=== PATIENT | female | born 1940 | race Caucasian/White ===

== ENCOUNTER 2025-07-10 10:56 | Outpatient (REF) | payer MEDICARE, OTHER, SELFPAY ==
[2025-07-10 14:53] LABS: Resp Syncy Virus RNA Qual PCR NEGATIVE (Negative); SARS COV2 PCR INHOUSE NEGATIVE (Negative)
== END 2025-07-10 10:57 | disposition home or self-care (01) ==
LOC: HO.LAB 10:56
PROVIDERS: Physician Assistant; PCP Internal Medicine
DX: Z03.818 Encounter for observation for suspected exposure to other biological agents ruled out (principal)
CPT/HCPCS: 87637

== ENCOUNTER 2025-07-10 10:56 | Outpatient (AMB) | payer MEDICARE, OTHER, SELFPAY ==
--- NOTE | 2025-07-10 11:02 | MHC.OFFWIV ---
Intake Vital Signs 07/10/25 11:03 Height 5 ft 3 in Weight 143 lb BMI 25.3 BP 122/70 Blood Pressure Location Lt brachial Position Sitting Pulse 74 Pulse Source Pulse Oximeter Temp 98.6 F Temp Source Oral Pulse Oximetry (%) 97 Oxygen Delivery Method Room Air Intake Visit Reasons: [employer]-diarrhea, cough, sore throat, running nose Intake Note: Patient presents c/o cough, chills, sore throat, runny nose, weakness, diarrhea, chest congestion x7 days Patient Tobacco Use Status: Never used Tobacco Allergies No Known Allergies Allergy (Verified 07/10/25 11:06) HPI HPI Comments History of Present Illness Details History - The patient is an 84-year-old female presenting with a one-week history of symptoms that began 1 week ago. - She reports chest congestion and watery, non-bloody, non-melanotic diarrhea. - Her symptoms also include a severe cough, which worsens at night, and occasional unmeasured fevers at night. - The patient has been able to eat, drink, and maintain hydration throughout her illness. - She reports having taken Zicam but it did not help her symptoms. - Her past medical history is negative for asthma and COPD, and she denies any history of smoking or vaping. - The patient states she has received all her recommended vaccinations. Review of Systems - Constitutional: Reports occasional, unmeasured fevers at night. - Respiratory: Reports chest congestion and a severe cough, particularly at night. - Gastrointestinal: Reports watery diarrhea. Denies any blood or black color in stool. - Head/Neck: Denies swelling in the lymph nodes of her neck. All systems reviewed and are unremarkable except as noted in HPI Physical Exam General: Cooperative, healthy appearing, comfortable and no acute distress Orientation/consciousness: Patient oriented x3 Limitations: No limitations Head: Normal to inspection Ears: Hearing grossly normal bilaterally, external ears normal, EAC's normal bilaterally and TM's normal bilaterally Nose: Normal external nose present, Normal nares present and No nasal discharge present Face and sinus: Normal facial exam and sinuses nontender Mouth: Normal oral and palatal mucosa present and moist mucous membranes Throat: tonsils normal, no exudates, uvula midline, posterior oropharynx erythema Eyes: Appearance normal, both eyes and all related structures Neck: Normal visual inspection, full ROM, no swelling in lymph nodes Respiratory: Clear to auscultation bilaterally. Normal respiratory effort, able to speak in complete sentences, actively coughing, no respiratory distress, not tachypneic, no tripod positioning and no use of accessory muscles Cardiovascular: Regular rate and rhythm. Normal S1 and S2 Skin: No rashes or lesions noted Neuro: Patient oriented x3 Extremities: Normal to inspection and Yes no clubbing, cyanosis or edema PFSH Social History Patient Tobacco Use Status: Never used Tobacco Physical Exam Vital Signs: Last Vital Signs Temp 98.6 F 07/10/25 11:03 Pulse 74 07/10/25 11:03 BP 122/70 07/10/25 11:03 Pulse Ox 97 07/10/25 11:03 Oxygen Delivery Method Room Air 07/10/25 11:03 BMI result Body Mass Index 25.3 Assessment & Plan Assessment & Plan (1) Acute viral syndrome: Code(s): B34.9 - Viral infection, unspecified Plan: Plan Patient was informed and verbally consented to the use of an ambient scribe for clinic note documentation during this visit. - VSS, pt well appearing and PE unremarkable. - The patient's presentation is consistent with a viral illness, likely COVID-19, influenza, or rhinovirus. - A nasal swab was collected for COVID-19, influenza, and RSV testing. - Due to the symptom duration exceeding 48 hours, antiviral medications are not indicated. - The patient was advised to maintain hydration and that symptoms may persist for another 5-7 days or up to a couple of weeks. - The patient was instructed to monitor for signs of pneumonia, such as shortness of breath or back pain, and to return for a chest X-ray or go to the ED if these symptoms develop. - She should follow up with her primary care provider if her condition does not improve within the next week. - To manage the severe nocturnal cough, a prescription for a cough suppressant was sent to [facility] on [facility]. - The patient was provided with a 10-day supply to be taken at bedtime. - She was counseled on the importance of keeping the medication secured from children. - [id number] options like Robitussin, Mucinex, and antihistamines were also discussed for symptom management. Orders: Orders SARS-CoV2/FLU/RSV Today R09.89 - Other specified symptoms and signs involving the circulatory and respiratory systems Medications: New benzonatate DO NOT ALLOW CHILDREN TO HAVE ACCESS TO THIS MEDICATION IT IS DANGEROUS FOR CHILDREN. 200 mg PO BEDTIME PRN 10 caps 0RF cough Coding Level of Care Code New Pt Level 3 (96435) Diagnoses Acute viral syndrome B34.9
[2025-07-10 11:03] VITALS: BP 122/70; PULSE 74; TEMP 37; O2SAT 97; BMI 25.3
--- OUTSIDE RECORDS SUMMARY | 2025-07-10 12:17 | XMS_ITS ---
Author Name [facility] Organization Unknown History of Medication Use Medication Directions Dispensed Refills Start Date End Date Stat traMADoL (ULTRAM) 50 mg tablet Take 1 tablet (50 mg total) by mouth every 6 (six) hours if needed for moderate pain or severe pain. Max Daily Amount: 200 mg 06/13/2024 active oxyCODONE (ROXICODONE) 5 mg immediate release tablet Take 1 tablet (5 mg total) by mouth every 6 (six) hours if needed for severe pain. Max Daily Amount: 20 mg 06/07/2024 active aspirin 81 mg EC tablet Take 1 tablet (81 mg total) by mouth 2 (two) times a day for 84 doses. 05/30/2024 07/12/2024 active ondansetron (ZOFRAN) 4 mg tablet Take 1 tablet (4 mg total) by mouth every 8 (eight) hours if needed for nausea or vomiting for up to 20 doses. 05/30/2024 active amLODIPine (NORVASC) 10 mg tablet Take 1 tablet (10 mg total) by mouth 1 (one) time each day. 04/06/2024 active atorvastatin (LIPITOR) 10 mg tablet Take 1 tablet (10 mg total) by mouth at bedtime. Take 1 Tablet by mouth every evening. 04/06/2024 active levothyroxine (SYNTHROID, LEVOTHROID) 75 mcg tablet Take 1 tablet (75 mcg total) by mouth 1 (one) time each day before breakfast. 04/06/2024 active lisinopril (PRINIVIL,ZESTRIL) 40 mg tablet Take 1 tablet (40 mg total) by mouth 1 (one) time each day. Take 1 Tablet by mouth every evening. 04/06/2024 active lidocaine-prilocaine (EMLA) 2.5-2.5 % cream APPLY TO THE TREATMENT AREAS 2 HOURS PRIOR TO APPOINTMENT. COSMETIC USE ONLY 12/21/2023 active tretinoin (RETIN-A) 0.05 % cream APPLY PEA SIZE AMOUNT TO FACE EVERY NIGHT 09/15/2023 active ondansetron ODT (ZOFRAN-ODT) 8 mg disintegrating tablet Take 1 tablet (8 mg total) by mouth. 09/09/2023 active pantoprazole (PROTONIX) 40 mg EC tablet Take 1 tablet (40 mg total) by mouth 1 (one) time each day before breakfast. 09/09/2023 active estradioL (ESTRACE) 0.01 % (0.1 mg/gram) vaginal cream Apply 1/2g with finger nightly for 2 weeks, then Wednesday, Wednesday, Wednesday. 04/08/2023 active calcium phosphate trib/vit D3 (calcium phosphate-vitamin D3) 250 mg-5 mcg (200 unit) tablet,chewable Chew 2 tablets 1 (one) time each day. active digoxin (LANOXIN) 125 mcg (0.125 mg) tablet Take 1 tablet (125 mcg total) by mouth 1 (one) time each day. active multivitamin (MULTIPLE VITAMINS ORAL) Take 1 tablet by mouth 1 (one) time each day. active Allergies Allergen Reaction Severity Comment Documented Date Source Statu s NITROFURANTOIN 09/08/2023 [facility] act vargas SIMVASTATIN myalgias 04/24/2020 [facility] activ e LOVASTATIN Muscle pain 11/09/2008 [facility] act vargas Problems Problem Status Onset Date Problem Type Date of Resolution Source Hypercholesterolemia active 3 ProblemAct [facility] Tubular adenoma active 2008-10-18 4 ProblemAct [facility] Paroxysmal SVT (supraventricular tachycardia) active 1 ProblemAct [facility] Osteopenia active 2018-08-19 4 ProblemAct [facility] Anxiety active 2011-12-19 2 ProblemAct [facility] Primary osteoarthritis of left hip active 2023-06-19 8 ProblemAct [facility] Post-traumatic osteoarthritis of right knee active 7 ProblemAct [facility] Hypertension active 3 ProblemAct [facility] Encounter for screening mammogram for breast cancer active EncounterDiagnosisAct [facility] N Chronic kidney disease, stage III (moderate) active 2013-12-18 1 ProblemAct [facility] PVD (peripheral vascular disease) active 2022-06-19 9 ProblemAct [facility] Hypothyroid active 8 ProblemAct [facility] N Lipoma of neck active 3 ProblemAct [facility] Lateral meniscus tear active 3 ProblemAct [facility] Esophageal reflux active 3 ProblemAct [facility] Status post total right knee replacement active 2024-05-19 1 ProblemAct [facility] N Immunizations Vaccine Date Source Lot Number Status COVID-19 (Pfizer/Comirnaty) 12yo and older 04/04/2023 [facility] [id number] completed Influenza trivalent, 0.5mL ( Fluzone High-dose) 65yo and older 04/04/2023 [facility] comple luiz Td Tetanus diptheria (Tdvax) 7yo and older 12/31/2022 [facility] [id number] completed TD, Adsorbed, Preservative Free 12/31/2022 [facility] A140 A1 completed Influenza trivalent, 0.5mL ( Fluzone High-dose) 65yo and older 04/18/2022 [facility] comple luiz Pfizer (ages 12 & older) Biv alent, COVID-19 04/06/2022 [facility] [id number] completed Pfizer SARS-CoV-2 COVID-19, mRNA, LNP-S, preservative free 04/20/2021 [facility] [id number] completed Influenza trivalent, 0.5mL ( Fluzone High-dose) 65yo and older 04/11/2021 [facility] comple luiz Pfizer SARS-CoV-2 COVID-19, mRNA, LNP-S, preservative free 10/01/2020 [facility] completed Influenza trivalent, 0.5mL ( Fluzone High-dose) 65yo and older 04/12/2020 [facility] comple luiz Influenza trivalent, 0.5mL ( Fluzone High-dose) 65yo and older 04/07/2019 [facility] [id number] comple luiz Zoster recombinant (Shingrix ) 19yo and older 11/04/2018 [facility] [id number] completed Influenza trivalent, 0.5mL ( Fluzone High-dose) 65yo and older 03/21/2018 [facility] comple luiz Zoster recombinant (Shingrix ) 19yo and older 03/18/2018 [facility] [id number] completed Influenza, Unspecified 04/18/2016 [facility] co mpleted Influenza, Unspecified 04/12/2015 [facility] co mpleted Pneumococcal conjugate 13 va lent (Prevnar 13, PCV13) 2mo and older 01/03/2015 [facility] [id number] complet ed Influenza, Unspecified 03/23/2014 [facility] co mpleted Tdap Tetanus diptheria acell ular pertussis (Boostrix; Adacel) 7yo and older 08/24/2012 [facility] [id number] completed Influenza trivalent, with pr eservative (Fluzone; Afluria) 6mo and older 04/08/2012 [facility] [id number] completed Influenza trivalent, with pr eservative (Fluzone; Afluria) 6mo and older 05/02/2011 [facility] completed Influenza trivalent, with pr eservative (Fluzone; Afluria) 6mo and older 05/19/2010 [facility] completed Zoster Live 07/26/2009 [facility] [id number] completed H1N1 Inj Preservative Free 07/05/2009 [facility] [id number] completed Influenza trivalent, with pr eservative (Fluzone; Afluria) 6mo and older 05/19/2009 [facility] completed Influenza trivalent, with pr eservative (Fluzone; Afluria) 6mo and older 04/18/2007 [facility] [id number] completed Pneumococcal polysaccharide 23 valent (Pneumovax 23) 2yo and older 09/22/2006 [facility] [id number] com pleted Influenza trivalent, with pr eservative (Fluzone; Afluria) 6mo and older 05/26/2005 [facility] completed Td, Unspecified 12/25/2002 [facility] completed Care Team Organization Name Specialty Phone Email Start Date End Da te [facility] ACO 03/07/2025 [facility] Leonila Clemente [facility] 12/25/2022 [facility] Aisha Gomez [facility] 05/26/202202/16
--- OUTSIDE RECORDS SUMMARY | 2025-07-10 12:17 | XMS_ITS | Clinical Summary ---
Author Organization [facility] Address [address] [place] [address] Phone Care Team Providers Care Flour Worker Name Role Phone Leonila Clemente MD Primary Care Provider [phone] Allergies Active Allergy Reactions Criticality Noted Date Comments Lovastatin Unknown Low 11/09/2008 Muscle pain Nitrofurantoin Unknown Low 09/08/2023 Simvastatin Unknown Low 04/24/2020 myalgias Medications lisinopril (PRINIVIL,ZESTR IL) 40 mg tablet Take 1 tablet (40 mg total) by mouth 1 (one) time each day. Take 1 Tablet by mouth every evening. 04/06/2024 Active tretinoin (RETIN-A) 0.05 % cream APPLY PEA SIZE AMOUNT TO FACE EVERY NIGHT 09/15/2023 Active calcium phosphate trib/vit D3 (calcium phosphate-vitam in D3) 250 mg-5 mcg (200 unit) tablet,chewable Chew 2 tablets 1 (one) time each day. Active multivitamin (MULTIPLE VITAMINS ORAL) Take 1 tablet by mouth 1 (one) time each day. Active amLODIPine (NORVASC) 5 mg tablet Take 1 tablet (5 mg total) by mouth 1 (one) time each day. 90 tablet 3 09/21/2024 Active metoprolol tartrate (LOPRESSOR) 25 mg tablet Take 0.5 tablets (12.5 mg total) by mouth 2 (two) times a day. 90 each 1 11/21/2024 Active levothyroxine (SYNTHROID, LEVOTHROID) 75 mcg tablet TAKE 1 TABLET BY MOUTH 1 TIME EACH DAY BEFORE BREAKFAST. 90 tablet 2 12/26/2024 Active atorvastatin (LIPITOR) 10 mg tablet TAKE 1 TABLET BY MOUTH EVERY DAY IN THE EVENING 90 tablet 1 05/21/2025 Active aspirin 81 mg EC tablet Take 1 tablet (81 mg total) by mouth 1 (one) time each day. 05/30/2025 6 Active Active Problems Problem Noted Date Diagnosed Date Supraventricular arrhythmia 05/30/2025 Atrial ectopy 05/30/2025 Overview (05/30/2025): She had a 7-day monitor which revealed Paroxysmal atrial tachycardia with the longest run being 37 seconds. There were frequent supraventricular ectopy with an overall burden of 5.6%. There was no clear rhythm correlate to the 6 patient triggered events, most of these were normal sinus rhythm with a few that correlated to isolated APCs or sinus rhythm with a supraventricular triplet. Assessment & Plan (05/30/2025 9:27 AM EST): Patient no longer having symptoms on the metoprolol 12.5 mg p.o. twice daily. Please continue with this regimen. Status post total replacement of left hip 2024 Status post total right knee replacement 024 Paroxysmal SVT (supraventricular tachycardia) Overview (04/19/2024): - Had a second presyncopal episode in 2009 at a restaurant that was postural in nature-she stood up, felt weak and dizzy-she laid to the floor and called EMS-eventually she was thought to have volume depletion after going to the ER - Had a Holter monitor after a second presyncopal episode in 2009 showing multiple short runs of SVT with the longest being only 11 beats, the patient was completely asymptomatic, of note, doing the math-the overall burden of SVE was only 0.6%- again she did not have any significant pauses though did have a fair portion of time in not clinically significant sinus bradycardia - She was started on digoxin for this in addition to pre-existing atenolol - At some point, atenolol was dropped and she remains on monotherapy with digoxin Last Assessment & Plan: Unclear that the SVT based on the documentation was ever clinically relevant-the patient does not describe any history of palpitations-her previous syncopal episodes sound vasovagal in nature, would give serious consideration to discontinuation of digoxin as it really is not doing much for the patient- if concern for SVT exists, would probably repeat a Holter off of digoxin after a few months. I did consider doing this today but she is going to be going for surgery very soon and I do not want to make any major medication changes prior to this. Assessment & Plan (11/21/2024 9:14 AM EDT): Not seen on recent Holter monitor. Patient doing well on the low-dose metoprolol. Patient is having no recurrence of palpitations. Will continue to monitor. Assessment & Plan (08/21/2024 12:00 PM EST): I am going to have the patient update an echocardiogram in addition I am going to update the monitor and instruct the patient that she needs to wear it overnight. I am curious if she is having episodes of SVT while she is sleeping and does not know about it. Patient is not endorsing any increase in palpitations, will not initiate Toprol at this time. Instructed to call 911 or go to the emergency room should the patient begin to experience chest pain or pressure lasting greater than 10 minutes does not resolve with rest. Orders: Basic metabolic panel; Future Transthoracic echocardiogram (TTE) complete with PRN contrast, bubble, strain, and 3D order panel; Future Cardiac event monitor; Future PVD (peripheral vascular disease) 07/16/2022 Overview (04/19/2024): 07/09 50-99% right SFA and popliteal stenosis Osteopenia 09/01/2018 Overview (04/19/2024): 09/06 T score spine 0.00 hip -1.4 FRAX score 12% 10 year fracture risk Chronic kidney disease, stage III (moderate) Assessment & Plan (10/11/2024 5:23 PM EDT): Anxiety 01/08/2012 Tubular adenoma 11/09/2008 Overview (04/19/2024): 3 Hypothyroid 02/24/2008 Assessment & Plan (10/11/2024 5:23 PM EDT): Lateral meniscus tear 07/21/2005 Overview (04/19/2024): KNEE LATERAL AND MEDIAL MENISCUS TEAR: REPAIRED Esophageal reflux 07/21/2005 Assessment & Plan (10/11/2024 5:23 PM EDT): Hypercholesterolemia 07/21/2005 Overview (04/19/2024): Last Assessment & Plan: Patient is tolerating low-dose Lipitor, continue. Assessment & Plan (05/30/2025 9:28 AM EST): At target with low-dose atorvastatin. Please adhere to a healthy cardiac diet and remain active. Continue current medication regimen. Assessment & Plan (11/21/2024 9:14 AM EDT): Lipid panel from 03/2024 revealed the cholesterol level LDL of 82. Triglycerides at 141. These are at target. Continue current medication regiment which is atorvastatin 10 mg p.o. daily. Assessment & Plan (10/11/2024 5:23 PM EDT): Assessment & Plan (08/21/2024 12:00 PM EST): Lipid panel from 03/2024 revealed LDL of 82. Patient can continue on current medication regimen. Should try to adhere to a healthy cardiac diet. Orders: Basic metabolic panel; Future Transthoracic echocardiogram (TTE) complete with PRN contrast, bubble, strain, and 3D order panel; Future Hypertension 07/21/2005 Overview (04/19/2024): Last Assessment & Plan: Suboptimally controlled in the office but better controlled at home. Likely whitecoat phenomenon. Continue current lisinopril 40 mg daily, amlodipine 10 mg daily. Assessment & Plan (05/30/2025 9:28 AM EST): Suboptimally controlled, patient has noted whitecoat syndrome. She did occasionally take blood pressures at home, however she reports that she has had good readings at in the past and stopped doing this regularly. Spoke to her that it would be a good idea periodically to check her blood pressure, especially if she is ever having symptoms. Not going to make any medication changes at this time. Educated on the importance of diet lifestyle to help further assist in reducing blood pressure. The patient was encouraged to follow low-salt low-fat diet, make purposeful strides towards weight loss, and engage in routine aerobic exercise as tolerated. Assessment & Plan (11/21/2024 9:14 AM EDT): Slightly elevated at the appointment today, however better than in the past that she has a whitecoat syndrome. Continue on current medication regimen. Educated on the importance of diet lifestyle to help further assist in reducing blood pressure. The patient was encouraged to follow low-salt low-fat diet, make purposeful strides towards weight loss, and engage in routine aerobic exercise as tolerated. Orders: Basic metabolic panel; Future Assessment & Plan (10/11/2024 5:23 PM EDT): Assessment & Plan (08/21/2024 12:00 PM EST): Patient is slightly hypertensive at the appointment today. Does take blood pressures at home and says they typically are normal. Educated on the importance of diet lifestyle to help further assist in reducing blood pressure. The patient was encouraged to follow low-salt low-fat diet, make purposeful strides towards weight loss, and engage in routine aerobic exercise as tolerated. Continue current regimen for now. Orders: Basic metabolic panel; Future Transthoracic echocardiogram (TTE) complete with PRN contrast, bubble, strain, and 3D order panel; Future Lipoma of neck 07/21/2005 Overview (04/19/2024): resected Resolved Problems Problem Noted Date Diagnosed Date Resolved Date Primary osteoarthritis of left knee 09/13/2024 09/13/2024 Post-traumatic osteoarthritis of right knee 02/23/2024 09/13/2024 Primary osteoarthritis of left hip 07/15/2023 09/13/2024 Overview (04/19/2024): 09/11 left THR Encounters Date Type Department Care Team Description 05/30/2025 9:10 AM EST Office Visit [facility] [address] [facility] [address] [place] [phone] Tarun Muñoz NP Hypercholesterolemia (Primary Dx); Hypertension, unspecified type; Atrial ectopy 05/01/2025 Telephone Adult Medicine [address] [phone] Leonila Clemente MD 04/18/2025 Results Follow-Up [address] [phone] Aisha Gomez PA 04/16/2025 10:00 AM EDT Office Visit Adult [address] [phone] Aisha Gomez PA Hypercholesterolemia (Primary Dx); Osteopenia, unspecified location; Acquired hypothyroidism; Primary hypertension; Stage 3a chronic kidney disease (CMS/HCC V24, CMS/HCC V28); Paroxysmal SVT (supraventricular tachycardia) (CMS/HCC V24) from Last 3 Months Immunizations Immunization Administration Dates Next Due COVID-19 (Pfizer/Comirnaty) 12yo and older 04/04/2023 H1N1 Inj Preservative Free 07/05/2009 Influenza Quadravalent, 0.5m l (Fluad) 65yo and older 04/11/2021,04/12/2020 Influenza Quadravalent, 0.5m l (Fluzone High-dose) 65yo and older 04/04/2023,04/20/2022 Influenza trivalent, 0.5mL ( Fluad) 65yo and older 04/17/2024,04/05/2017 Influenza trivalent, 0.5mL ( Fluzone High-dose) 65yo and older 04/10/2025,04/04/2023,04/18/2022,04/11,04/12/2020,04/07/2019,03/21/2018 ,04/02/2016 Influenza trivalent, with pr eservative (Fluzone; Afluria) 6mo and older 04/08/2012,05/02/2011,05/19/2010,05/19,04/18/2007,05/26/2005 Influenza, Unspecified 04/18/2016,04/12/2015,11/2013 Pfizer (ages 12 & older) Biv alent, COVID-19 04/06/2022 Pfizer SARS-CoV-2 COVID-19, mRNA, LNP-S, preservative free 04/04/2023,04/20/2021,10/01/2020,09/17 Pneumococcal conjugate 13 va lent (Prevnar 13, PCV13) 2mo and older 01/03/2015 Pneumococcal polysaccharide 23 valent (Pneumovax 23) 2yo and older 09/22/2006 RSV, bivalent, protein subun it RSVpreF, 0.5mL, Preservative Free (Arexvy) 50yo and older 04/17/2024 Respiratory Syncytial Virus Monoclonal Antibody (palivizumab), Intramuscular 04/17/2024 TD, Adsorbed, Preservative Free 12/31/2022 Td Tetanus diptheria (Tdvax) 7yo and older 12/31/2022 Td, Unspecified 12/25/2002 Tdap Tetanus diptheria acell ular pertussis (Boostrix; Adacel) 7yo and older 08/24/2012 Zoster Live 07/26/2009 Zoster recombinant (Shingrix ) 19yo and older 11/04/2018,03/18/2018 Surgical History Surgery Date Site/Laterality Comments HYSTERECTOMY HIP ARTHROPLASTY MENISCECTOMY OTHER SURGICAL HISTORY Medical History Medical History Date Comments Hypertension PVD (peripheral vascular disease) ([facility] V24) Sinoatrial node dysfunction ([facility] V24, CMS/HC C V28) Hyperlipidemia A-fib ([facility] V24, [facility] V28) Arrhythmia GERD (gastroesophageal reflux disease) Chronic kidney disease OA (osteoarthritis) Bunion of right foot Lumbar spondylosis DJD (degenerative joint disease) Joint pain OP (osteoporosis) Hypothyroidism Anxiety Family History Medical History Relation Name Comments Breast cancer Sister Relation Name Status Comments Sister Social History Tobacco Use Types Packs/Day Years Used Date Smoking Tobacco: Never Smokeless Tobacco: Never Tobacco Cessation:Counseling Given: Not Answered Alcohol Use Standard Drinks/Week Comments Never 0 (1 standard drink = 0.6 oz pur e alcohol) Interpersonal Safety Answer Date Record ed Physical Abuse Unrecognized value 05/30/2024 Verbal Abuse Unrecognized value 05/30/2024 Comments Unknown Sex and Gender Information Value Date Recorded Sex Assigned at Female 05/29/2024 10:40 AM EST Legal Sex Female 2:45 AM EST Gender Identity Female 05/29/2024 10:40 AM EST Sexual Orientation Straight 05/29/2024 10 :40 AM EST Obstetrics History Para Term AB IAB SAB Ectopic Multiple Livin g Live Births 5 5 5 5 Date Outcome GA Total Labor Labor/2nd/3rd Weight Sex Type Anes PTL Emelia A1 A5 Name Clin Term Term Term Term Term Last Filed Vital Signs Vital Sign Reading Time Taken Comments Blood Pressure 160/64 05/30/2025 9:01 AM EST Pulse 59 05/30/2025 9:01 AM EST Temperature 35.6 C (96.1 F) 04/16/2025 10:06 AM EDT Respiratory Rate 18 04/16/2025 10:06 AM EDT Oxygen Saturation 99% 05/30/2025 9:01 AM EST Inhaled Oxygen Concentration - - Weight 64.4 kg (142 lb) 05/30/2025 9:01 AM EST Height 160 cm (5' 3 ) 05/30/2025 9:01 AM EST Body Mass Index 25.15 05/30/2025 9:01 AM EST Plan of Treatment Upcoming Encounters Date Type Department Care Team (Late st Contact Info) Description 07/18/2025 9:00 AM EST Office Visit Orthopedic Surgery - [place] [address] [address] [facility] [address] [place] [phone] Bobo Romo MD [address] [address] 08/07/2025 2:45 PM EST Appointment Bone Density [address] [phone] Health Maintenance Due Date Last Done Comments Osteoporosis Screening (Bone Density Screening) 06/27/2022 09/01/2018 Social Influencers of Health Screening 06/27/2022 COVID-19 Vaccine (10 - Pfizer risk season) 2025 04/10/2025, 04/17/2024, 04/04/2023, Additional history exists Falls Risk Assessment 10/11/2025 10/11/2024, 024 Medicare Annual Wellness Visit 10/11/2025 10/11/2024 Hypertension/CHF/CAD Annual BMP Blood Test 04/16/2026 04/16/2025, 11/22/2024, 09/20/2024, Additional history exists Cholesterol Screening (Lipid Panel) 04/16/2030 04/16/2025, 04/07/2024, 04/07/2024 DTaP,Tdap,and Td Vaccines (5 - Td or Tdap) 12/31/2032 12/31/2022, 12/31/2022, 08/24/2012, Additional history exists Pneumococcal Vaccine: 50+ Years Completed 01/03/2015, 09/22/2006 Zoster Vaccines Completed 11/04/2018, 02/18, 07/26/2009 RSV Immunization Adult Patients Completed 04/17/2024 Depression Screening Completed 10/11/2024, 06/22/20 23 Influenza Vaccine Completed 04/10/2025, , 04/04/2023, Additional history exists HIB Vaccines Aged Out No longer eligi ble based on patient's age to complete this topic HPV Vaccines Aged Out No longer eligi ble based on patient's age to complete this topic Hepatitis A Vaccines Aged Out No long er eligible based on patient's age to complete this topic Hepatitis B Vaccines Aged Out No long er eligible based on patient's age to complete this topic IPV Vaccines Aged Out No longer eligi ble based on patient's age to complete this topic MMR Vaccines Aged Out No longer eligi ble based on patient's age to complete this topic Meningococcal ACWY Vaccine Aged Out N o longer eligible based on patient's age to complete this topic Meningococcal B Vaccine Aged Out No l onger eligible based on patient's age to complete this topic RSV Immunization Patients Under 20 months Aged Out No longer eligible based on patient's age to complete this topic Varicella Vaccines Aged Out No longer eligible based on patient's age to complete this topic Medical Devices Implanted Type Area [employer] Device Identifier Shelf Expiration Date Model / Serial / Lot Joints Hip Joints Hip Left: Hip Stem Extension Tapered Cemented [id number] - Sn/A - [id number] Implanted:Qty: 1 on 05/29/2024 by Bobo Romo MD at [facility] Joints Knee Right: Knee [employer] 01/05/2029 [id number] / N/A / [id number] All Poly Pat Ve 32 Mm Kandy - Sn/A - [id number] Implanted:Qty: 1 on 05/29/2024 by Bobo Romo MD at [facility] Joints Knee Right: Knee [employer] [id number] 01/05/2029 [id number] / N/A / [id number] Knee Psn Fem Ps Cmt Ccr Std Sz6 R - Sn/A - [id number] Implanted:Qty: 1 on 05/29/2024 by Bobo Romo MD at [facility] Joints Knee Right: Knee [employer] 02/16/2028 [id number] / N/A / [id number] Knee Psn Asf Mlc 12mm Rt 6-9 Ef - Sn/A - [id number] Implanted:Qty: 1 on 05/29/2024 by Bobo Romo MD at [facility] Joints Knee Right: Knee [employer] [id number] 02/18/2027 [id number] / N/A / [id number] Femur Implanted:Qty: 1 on 05/29/2024 by Bobo Romo MD at [facility] Right: Knee [employer] 10/19/2033 [id number] / N/A / [id number] Cement Implanted:Qty: 2 on 05/29/2024 by Bobo Romo MD at [facility] Right: Knee [employer] 05/18/2026 [id number] / N/A / [id number] Description:Cement powder Procedures Procedure Name Priority Date/Time Associated Diagnosis Comments COMPLETE BLOOD COUNT Routine 04/16/2025 10:38 AM EDT Hypercholesterolemia Osteopenia, unspecified location Acquired hypothyroidism Primary hypertension Stage 3a chronic kidney disease (CMS/HCC V24, CMS/HCC V28) Paroxysmal SVT (supraventricular tachycardia) (CMS/HCC V24) HEMOGLOBIN A1C Routine 04/16/2025 10:38 AM EDT Hypercholesterolemia Osteopenia, unspecified location Acquired hypothyroidism Primary hypertension Stage 3a chronic kidney disease (CMS/HCC V24, CMS/HCC V28) Paroxysmal SVT (supraventricular tachycardia) (CMS/HCC V24) VITAMIN D 25 HYDROXY Routine 04/16/2025 10:38 AM EDT Hypercholesterolemia Osteopenia, unspecified location Acquired hypothyroidism Primary hypertension Stage 3a chronic kidney disease (CMS/HCC V24, CMS/HCC V28) Paroxysmal SVT (supraventricular tachycardia) (CMS/HCC V24) LIPID PANEL WITH REFLEX TO DIRECT LDL Routine 04/16/2025 10:38 AM EDT Hypercholesterolemia Osteopenia, unspecified location Acquired hypothyroidism Primary hypertension Stage 3a chronic kidney disease (CMS/HCC V24, CMS/HCC V28) Paroxysmal SVT (supraventricular tachycardia) (CMS/HCC V24) COMPREHENSIVE METABOLIC PANEL Routine 04/16/2025 10:38 AM EDT Hypercholesterolemia Osteopenia, unspecified location Acquired hypothyroidism Primary hypertension Stage 3a chronic kidney disease (CMS/HCC V24, CMS/HCC V28) Paroxysmal SVT (supraventricular tachycardia) (CMS/HCC V24) THYROID STIMULATING HORMONE Routine 04/16/2025 10:38 AM EDT Hypercholesterolemia Osteopenia, unspecified location Acquired hypothyroidism Primary hypertension Stage 3a chronic kidney disease (CMS/HCC V24, CMS/HCC V28) Paroxysmal SVT (supraventricular tachycardia) (CMS/HCC V24) FALLS RISK ASSESSMENT Routine 01/25/2024 DEPRESSION SCREENING Routine 06/22/2023 DXA BONE DENSITY STUDY 1+ SITS AXIAL SKEL Routine 09/01/2018 11:31 AM EST Unspecified menopausal and perimenopausal disorder from Last 3 Months or Most Recently Relevant to Health Maintenance Results * Lipid panel with reflex to direct LDL (04/16/2025 10:38 AM EDT) Cholesterol 137 0 - 200 mg/dL LAB CHEMISTRY METHOD 04/16/2025 5:45 PM EDT [facility] Triglycerides 130 0 - 150 mg/dL LAB CHEMISTRY METHOD 04/16/2025 5:45 PM EDT [facility] HDL 51 >=40 mg/dL LAB CHEMISTRY METHOD 04/16/2025 5:45 PM EDT [facility] LDL Calculated 60 0 - 100 mg/dL LAB CHEMISTRY METHOD 04/16/2025 5:45 PM EDT [facility] Comment:Estimated LDL Calcul ated using equation: Total cholesterol - HDL cholesterol - (Triglycerides/5) VLDL Cholesterol Herson 26 mg/dL LAB CHEMISTRY METHOD 04/16/2025 5:45 PM EDT [facility] Non HDL Chol. (LDL+VLDL) 86 <145 mg/dL LAB CHEMISTRY METHOD 04/16/2025 5:45 PM EDT [facility] Chol/HDL Ratio 2.7 0.0 - 4.4 LAB CHEMISTRY METHOD 04/16/2025 5:45 PM EDT [facility] Blood Venous blood specimen / Unknown Venipuncture / Unknown 04/16/2025 10:38 AM EDT 04/16/2025 10:38 AM EDT us Aisha WELLS LAB BLOOD ORDERABLES Final Re sult [facility] [address] [place] [address], * Vitamin D 25 hydroxy (04/16/2025 10:38 AM EDT) Vit D, 25-Hydroxy 63.4 30.0 - 80.0 ng/mL LAB CHEMISTRY METHOD 04/16/2025 6:44 PM EDT [facility] Blood Venous blood specimen / Unknown Venipuncture / Unknown 04/16/2025 10:38 AM EDT 04/16/2025 10:38 AM EDT us Aisha WELLS LAB BLOOD ORDERABLES Final Re sult [facility] [address] [place] [address], * (ABNORMAL) Complete blood count (04/16/2025 10:38 AM EDT) WBC 7.2 4.8 - 10.8 K/mcL LAB HEMETOLOGY METHOD 04/16/2025 2:47 PM EDT [facility] RBC 3.90 3.80 - 4.80 M/mcL LAB HEMETOLOGY METHOD 04/16/2025 2:47 PM EDT [facility] Hemoglobin 12.3 11.5 - 16.0 g/dL LAB HEMETOLOGY METHOD 04/16/2025 2:47 PM EDT [facility] Hematocrit 38.6 35.0 - 47.0 % LAB HEMETOLOGY METHOD 04/16/2025 2:47 PM EDT [facility] MCV 98.0 79.0 - 98.0 FL LAB HEMETOLOGY METHOD 04/16/2025 2:47 PM EDT [facility] MCH 31.2 27.0 - 32.0 pcg LAB HEMETOLOGY METHOD 04/16/2025 2:47 PM EDT [facility] MCHC 31.9(L) 32.0 - 37.0 g/dL LAB HEMETOLOGY METHOD 04/16/2025 2:47 PM EDT [facility] RDW 13.1 11.0 - 15.0 % LAB HEMETOLOGY METHOD 04/16/2025 2:47 PM EDT [facility] Platelets 291 130 - 400 K/mcL LAB HEMETOLOGY METHOD 04/16/2025 2:47 PM EDT [facility] MPV 11.1(H) 7.0 - 11.0 FL LAB HEMETOLOGY METHOD 04/16/2025 2:47 PM EDT [facility] NRBC 0.0 <1.0 % LAB HEMETOLOGY METHOD 04/16/2025 2:47 PM EDT [facility] NRBC Absolute 0.00 <0.10 K/mcL LAB HEMETOLOGY METHOD 04/16/2025 2:47 PM EDT [facility] Blood Venous blood specimen / Unknown Venipuncture / Unknown 04/16/2025 10:38 AM EDT 04/16/2025 10:38 AM EDT us Aisha WELLS LAB BLOOD ORDERABLES Final Re sult Performing Organization Address City/[facility]/ZIP Co de Phone Number [facility] [address] [place] [address], [place] [phone] * Thyroid stimulating hormone (04/16/2025 10:38 AM EDT) [facility] TSH 2.15 0.40 - 4.00 mcIU/mL LAB CHEMISTRY METHOD 04/16/2025 6:22 PM EDT [facility] Blood Venous blood specimen / Unknown Venipuncture / Unknown 04/16/2025 10:38 AM EDT 04/16/2025 10:38 AM EDT us Aisha WELLS LAB BLOOD ORDERABLES Final Re sult [facility] [address] [place] [address], [place] [phone] * Hemoglobin A1c (04/16/2025 10:38 AM EDT) Hemoglobin A1C 5.5 <6.5 % LAB CHEMISTRY METHOD 04/16/2025 2:15 PM EDT [facility] Mean Bld Glu Estim. 111 mg/dL LAB CHEMISTRY METHOD 04/16/2025 2:15 PM [facility] Blood Venous blood specimen / Unknown Venipuncture / Unknown 04/16/2025 10:38 AM EDT 04/16/2025 10:38 AM EDT us Aisha WELLS LAB BLOOD ORDERABLES Final Re sult [facility] [address] [place] [address], [place] [phone] * (ABNORMAL) Comprehensive metabolic panel (04/16/2025 10:38 AM EDT) Sodium 139 133 - 145 mmol/L LAB CHEMISTRY METHOD 04/16/2025 5:45 PM [facility] Potassium 4.6 3.5 - 5.5 mmol/L LAB CHEMISTRY METHOD 04/16/2025 5:45 PM [facility] Chloride 107 96 - 110 mmol/L LAB CHEMISTRY METHOD 04/16/2025 5:45 PM [facility] CO2 28 21 - 32 mmol/L LAB CHEMISTRY METHOD 04/16/2025 5:45 PM [facility] Anion Gap 4 3 - 11 LAB CHEMISTRY METHOD 04/16/2025 5:45 PM [facility] Glucose 83 70 - 100 mg/dL LAB CHEMISTRY METHOD 04/16/2025 5:45 PM [facility] BUN 18 5 - 25 mg/dL LAB CHEMISTRY METHOD 04/16/2025 5:45 PM [facility] Creatinine 1.15(H) 0.50 - 1.10 mg/dL LAB CHEMISTRY METHOD 04/16/2025 5:45 PM [facility] eGFR 47(L) >=60 mL/min/1. 73m2 LAB CHEMISTRY METHOD 04/16/2025 5:45 PM T [facility] Comment:Calculation based on the Chronic Kidney Disease Epidemiology Collaboration (CKD-EPI) equation refit without adjustment for race. BUN/Creatinine Ratio 15.7 LAB CHEMISTRY METHOD 04/16/2025 5:45 PM [facility] Calcium 9.3 8.5 - 10.5 mg/dL LAB CHEMISTRY METHOD 04/16/2025 5:45 PM [facility] AST (SGOT) 17 10 - 42 unit/L LAB CHEMISTRY METHOD 04/16/2025 5:45 PM [facility] ALT (SGPT) 22 10 - 60 unit/L LAB CHEMISTRY METHOD 04/16/2025 5:45 PM [facility] Alkaline Phosphatase 74 42 - 121 unit/L LAB CHEMISTRY METHOD 04/16/2025 5:45 PM [facility] Total Protein 6.3 6.0 - 8.0 g/dL LAB CHEMISTRY METHOD 04/16/2025 5:45 PM [facility] Albumin 3.7 3.2 - 5.0 g/dL LAB CHEMISTRY METHOD 04/16/2025 5:45 PM [facility] Total Bilirubin 0.4 0.0 - 1.4 mg/dL LAB CHEMISTRY METHOD 04/16/2025 5:45 PM [facility] Blood Venous blood specimen / Unknown Venipuncture / Unknown 04/16/2025 10:38 AM EDT 04/16/2025 10:38 AM EDT us Aisha WELLS LAB BLOOD ORDERABLES Final Re sult [facility] [address] [place] [address], * Falls Risk Assessment (01/25/2024) [facility] Falls Risk Assessment Abstracted us Historical Provider HEALTH MAINTENANCE Final Result * Depression Screening (06/22/2023) Pathologist [facility] Depression Screening Abstracted us Historical Provider HEALTH MAINTENANCE Final Result * DXA BONE DENSITY STUDY 1+ SITS AXIAL SKEL (09/01/2018 11:31 AM EST) Anatomical Region Laterality Modality Bone Densitometr y 08/22/2018 9:17 AM EST Narrative 09/01/2018 12:34 PM EST DEXA SCAN: Lumbar Spine T-score is 0.0. (SD relative to 20-29 y/o adult) Z-score is +2.6. (SD relative to age matched peers) This is considered normal bone density by WHO criteria. Left Femoral Neck T-score is -1.4. Z-score is +0.8. This is considered osteopenia by WHO criteria. Comparison exam(s): Compared to 04/20/2008, there is a 3.8% increase in bone density measured throughout the lumbar spine. A statistically significant, 16.9% decrease in bone density is measured at the left hip compared to 04/20/2008. IMPRESSION: Osteopenia by WHO criteria. This patient has a 12% risk of major osteoporotic fracture and a 2.7% risk of hip fracture over the next 10 years. (World Health Organization Fracture Risk Assessment) [facility] Department of Internal Medicine recommends using National Osteoporosis Foundation (NOF) guidelines in treatment decisions related to osteoporosis. NOF guidelines suggest considering treatment for postmenopausal women and men aged 50 or older presenting with the following: History of hip or vertebral fracture. T-score = -2.5 (DXA) at the femoral neck, total hip, or spine, after appropriate evaluation to exclude secondary causes. Low bone mass (T-score between -1.0 and -2.5 at the femoral neck or spine) AND a 10-year probability of a hip fracture = 3% OR a 10-year probability of a major osteoporosis-related fracture = 20% based on the [place]-adapted WHO algorithm Please note that all treatment decisions require clinical judgment and consideration of individual patient factors, including patient preferences, co-morbidities, previous drug use, risk factors not captured in the FRAX model (e.g., frailty, falls, vitamin D deficiency, increased bone turnover, interval significant decline in bone density) and possible under- or over-estimation of fracture risk by FRAX. Optional alternative screening schedule based on arturo Lewis., [facility] August 06, 2011 for patients with osteopenia (based on hip BMD T-score) is as follows: * advanced osteopenia (T scores -2.00 to -2.49), BMD testing every year * moderate osteopenia (T scores -1.50 to -1.99), BMD testing every 5 years mild osteopenia or normal BMD (T scores -1.50 and higher), BMD testing every 15 years Procedure Note Noemí Nickerson, DO - 07/07/2022 DEXA SCAN: Lumbar Spine T-score is 0.0. (SD relative to 20-29 y/o adult) Z-score is +2.6. (SD relative to age matched peers) This is considered normal bone density by WHO criteria. Left Femoral Neck T-score is -1.4. Z-score is +0.8. This is considered osteopenia by WHO criteria. Comparison exam(s): Compared to 04/20/2008, there is a 3.8% increase inbone density measured throughout the lumbar spine. A statistically significant, 16.9% decreasein bone density is measured at the left hip compared to 04/20/2008. IMPRESSION: Osteopenia by WHO criteria. This patient has a 12% risk of majorosteoporotic fracture and a 2.7% risk of hip fracture over the next 10 years. (WorldHealth Organization Fracture Risk Assessment) [facility] Department of Internal Medicine recommendsusing National Osteoporosis Foundation (NOF) guidelines in treatment decisions related toosteoporosis. NOF guidelines suggest considering treatment for postmenopausal women and menaged 50 or older presenting with the following: History of hip or vertebral fracture. T-score = -2.5 (DXA) at the femoral neck, total hip, or spine, afterappropriate evaluation to exclude secondary causes. Low bone mass (T-score between -1.0 and -2.5 at the femoral neck or spine)AND a 10-year probability of a hip fracture = 3% OR a 10-year probability of a majorosteoporosis-related fracture = 20% based on the [place]-adapted WHO algorithm Please note that all treatment decisions require clinical judgment andconsideration of individual patient factors, including patient preferences, co- morbidities,previous drug use, risk factors not captured in the FRAX model (e.g., frailty, falls, vitaminD deficiency, increased bone turnover, interval significant decline in bone density) andpossible under- or over-estimation of fracture risk by FRAX. Optional alternative screening schedule based on arturo Lewis., [facility] for patients with osteopenia (based on hip BMD T-score) is as follows: * advanced osteopenia (T scores -2.00 to -2.49), BMD testing every year * moderate osteopenia (T scores -1.50 to -1.99), BMD testing every 5years mild osteopenia or normal BMD (T scores -1.50 and higher), BMD testingevery 15 years Leonila Clemente MD IM DXA PROCEDURES Final Result from Last 3 Months or Most Recently Relevant to Health Maintenance Insurance [place] [id number] MEDICARE [facility] Advance Directives * Full Code - Default (Latest Code Status on File) Date Activated Date Inactivated Comments 05/29/2024 3:50 PM 05/30/2024 3:08 PM This is or star is used when code status has not been discussed with the patient, or code status is otherwise unknown/unconfirmed To update the patient's code status, place a code status order. Do not modify or discontinue any currently active code status orders. Care Teams Flour Worker Relationship Specialty Start Date End Date Leonila Clemente MD [address] [place] [id number] PCP - General 08/27/1998
== END 2025-07-10 12:10 | disposition home or self-care (01) ==
PROVIDERS: PCP Internal Medicine; Visit Provider Physician Assistant
DX: B34.9 Viral infection, unspecified (principal)